=== PATIENT | male | born 1950 | race African-American/Black ===

== ENCOUNTER 2018-07-20 09:49 | Emergency (ER) | payer OTHER ==
[~2018-07-20] VITALS: Ht 175.3 cm; Wt 99.8 kg
[2018-07-20] MEDS ORDERED: IV NORMAL SALINE 1000ML BAG 1,000 ML IV SCH (10:18)
--- NOTE | 2018-07-20 10:36 | PHYS DOC ---
Adult General Chief Complaint Chief Complaint: BLOOD SUGAR PROBLEM HPI HPI Patient is a 67 year old male who presents with complaining of high blood sugar and urinary frequency. Patient states for the last 3 days he had urinary frequency without dysuria or abdominal pain and fever and chills and seen by his primary care physician today and had blood sugar of more than 400 and ketone in his urine and sent to ER for evaluation. Patient states recently he was changed to Januvia instead of glyburide. Patient primary care physician called ER and stated that patient is not compliant with diabetic diet. Patient denies fever and chills, chest pain, shortness of breath, focal neuro deficit. Review of Systems Review of Systems Constitutional: Denies fever or chills [] Eyes: Denies change in visual acuity, redness, or eye pain [] HENT: Denies nasal congestion or sore throat [] Respiratory: Denies cough or shortness of breath [] Cardiovascular: No additional information not addressed in HPI [] GI: Denies abdominal pain, nausea, vomiting, bloody stools or diarrhea [] : Denies dysuria or hematuria [] Musculoskeletal: Denies back pain or joint pain [] Integument: Denies rash or skin lesions [] Neurologic: Denies headache, focal weakness or sensory changes [] Endocrine: Denies polyuria or polydipsia [] All other systems were reviewed and found to be within normal limits, except as documented in this note. Current Medications Current Medications Current Medications Medications (Trade) Dose Ordered Sig/Gabriel Start Time Stop Time Status Last Admin Dose Admin Insulin Human Regular (HumuLIN R VIAL) 10 unit 1X ONCE 07/20/18 13:00 07/20/18 13:01 DC 07/20/18 13:03 10 UNIT Sodium Chloride 1,000 ml @ 100 mls/hr Q10H 07/20/18 10:18 07/20/18 20:17 07/20/18 10:36 100 MLS/HR Allergies Allergies Allergies Coded Allergies Type Severity Reaction Last Updated Verified aspirin Adverse Reaction Mild 07/20/18 Yes lisinopril Adverse Reaction Mild 07/20/18 Yes Physical Exam Physical Exam Constitutional: Well developed, well nourished, no acute distress, non-toxic appearance. [] HENT: Normocephalic, atraumatic, oropharynx moist, no oral exudates, nose normal. [] Eyes: PERRLA, EOMI, conjunctiva normal, no discharge. [] Neck: Normal range of motion, no tenderness, supple, no stridor. [] Cardiovascular:Heart rate regular rhythm, no murmur [] Lungs & Thorax: Bilateral breath sounds clear to auscultation [] Abdomen: Bowel sounds normal, soft, no tenderness, no masses, no pulsatile masses. [] Skin: Warm, dry, no erythema, no rash. [] Back: No tenderness, no CVA tenderness. [] Extremities: No tenderness, no cyanosis, no clubbing, ROM intact, no edema. [] Neurologic: Alert and oriented X 3, normal motor function, normal sensory function, no focal deficits noted. [] Psychologic: Affect normal, judgement normal, mood normal. [] Current Patient Data Vital Signs Vital Signs Date Time Temp Pulse Resp B/P (MAP) Pulse Ox O2 Delivery O2 Flow Rate FiO2 07/20/18 12:15 60 20 92/59 (70) 96 Room Air 07/20/18 10:14 99.2 99.2 Lab Values Laboratory Tests Test 07/20/18 10:13 07/20/18 10:31 07/20/18 11:31 07/20/18 12:50 Glucose (Fingerstick) 373 mg/dL (70-99) H 409 mg/dL (70-99) H White Blood Count 5.1 x10^3/uL (4.0-11.0) Red Blood Count 4.63 x10^6/uL (4.30-5.70) Hemoglobin 13.4 g/dL (13.0-17.5) Hematocrit 40.1 % (39.0-53.0) Mean Corpuscular Volume 87 fL (79-100) Mean Corpuscular Hemoglobin 29 pg (25-35) Mean Corpuscular Hemoglobin Concent 33 g/dL (31-37) Red Cell Distribution Width 14.0 % (11.5-14.5) Platelet Count 216 x10^3/uL (140-400) Neutrophils (%) (Auto) 51 % (31-73) Lymphocytes (%) (Auto) 40 % (24-48) Monocytes (%) (Auto) 6 % (0-9) Eosinophils (%) (Auto) 3 % (0-3) Basophils (%) (Auto) 1 % (0-3) Neutrophils # (Auto) 2.6 x10^3uL (1.8-7.7) Lymphocytes # (Auto) 2.0 x10^3/uL (1.0-4.8) Monocytes # (Auto) 0.3 x10^3/uL (0.0-1.1) Eosinophils # (Auto) 0.2 x10^3/uL (0.0-0.7) Basophils # (Auto) 0.0 x10^3/uL (0.0-0.2) Sodium Level 130 mmol/L (136-145) L Potassium Level 4.3 mmol/L (3.5-5.1) Chloride Level 94 mmol/L (98-107) L Carbon Dioxide Level 25 mmol/L (21-32) Anion Gap 11 (6-14) Blood Urea Nitrogen 21 mg/dL (8-26) Creatinine 1.9 mg/dL (0.7-1.3) H Estimated GFR (Cockcroft-Gault) 43.3 BUN/Creatinine Ratio 11 (6-20) Glucose Level 457 mg/dL (70-99) H Calcium Level 8.3 mg/dL (8.5-10.1) L Magnesium Level 1.7 mg/dL (1.8-2.4) L Total Bilirubin 1.6 mg/dL (0.2-1.0) H Aspartate Amino Transferase (AST) 18 U/L (15-37) Alanine Aminotransferase (ALT) 30 U/L (16-63) Alkaline Phosphatase 124 U/L (46-116) H Total Protein 8.0 g/dL (6.4-8.2) Albumin 3.8 g/dL (3.4-5.0) Albumin/Globulin Ratio 0.9 (1.0-1.7) L Lipase 114 U/L (73-393) Acetone Level Sm pos (NEG) Urine Collection Type Unknown Urine Color Yellow Urine Clarity Clear Urine pH 5.0 Urine Specific [place] 1.015 Urine Protein Negative mg/dL (NEG-TRACE) Urine Glucose (UA) >=1000 mg/dL (NEG) Urine Ketones (Stick) Trace mg/dL (NEG) Urine Blood Negative (NEG) Urine Nitrite Negative (NEG) Urine Bilirubin Negative (NEG) Urine Urobilinogen Dipstick 0.2 mg/dL (0.2 mg/dL) Urine Leukocyte Esterase Negative (NEG) Urine RBC 0 /HPF (0-2) Urine WBC 0 /HPF (0-4) Urine Squamous Epithelial Cells Few /LPF Urine Bacteria 0 /HPF (0-FEW) Laboratory Tests 07/20/18 10:31 Laboratory Tests 07/20/18 10:31 EKG EKG [] Radiology/Procedures Radiology/Procedures [] Course & Med Decision Making Course & Med Decision Making Pertinent Labs reviewed. (See chart for details) Evaluation of patient in ER showed 67-year-old male patient noncompliance with diabetic diet sent from primary care physician office because of high blood sugar like 20 urine. Patient had unremarkable vital signs and physical exam blood sugar was 475 that improved with IV fluid and insulin to 339. Patient did not have sign of DKA. He was advised to follow with diabetic diet and follow up with his primary care physician regarding diabetes management. Dragon Disclaimer Dragon Disclaimer This electronic medical record was generated, in whole or in part, using a voice recognition dictation system. Departure Departure Impression: Primary Impression: Hyperglycemia Additional Impressions: Uncontrolled diabetes mellitus Hypomagnesemia Hyperbilirubinemia Disposition: HOME, SELF-CARE (@2875) Condition: IMPROVED Patient Instructions: 1800 Calorie Diet for Diabetes Meal Planning, Diabetes Meal Planning Guide, Diabetes and Exercise-SportsMed, Hyperglycemia Additional Instructions: Drink plenty of liquids Follow-up with your primary care physician in 3-5 days Return to ER if not getting better Problem Qualifiers AMINATA ABBASI MD Jul 20, 2018 10:36
[2018-07-20 10:49] LABS: BASO % 1 % (0-3); EOS # 0.2 x10^3/uL (0.0-0.7); EOS % 3 % (0-3); HEMATOCRIT 40.1 % (39.0-53.0); HEMOGLOBIN 13.4 g/dL (13.0-17.5); LYMPH % 40 % (24-48); MEAN CORPUSCULAR HEMOGLOBIN 29 pg (25-35); MEAN CORPUSCULAR HGB CONC 33 g/dL (31-37); MEAN CORPUSCULAR VOLUME 87 fL (79-100); MONO # 0.3 x10^3/uL (0.0-1.1); MONO % 6 % (0-9); NEUT # 2.6 x10^3uL (1.8-7.7); NEUT % 51 % (31-73); PLATELET COUNT 216 x10^3/uL (140-400); RED BLOOD COUNT 4.63 x10^6/uL (4.30-5.70); WHITE BLOOD COUNT 5.1 x10^3/uL (4.0-11.0)
[2018-07-20 11:05] LABS: CALCIUM 8.3 mg/dL (8.5-10.1); CREATININE 1.9 mg/dL (0.7-1.3); GFR 43.3; POTASSIUM 4.3 mmol/L (3.5-5.1)
[2018-07-20 11:11] LABS: ALBUMIN 3.8 g/dL (3.4-5.0); ALBUMIN/GLOBULIN RATIO 0.9 (1.0-1.7); MAGNESIUM 1.7 mg/dL (1.8-2.4); TOTAL BILIRUBIN 1.6 mg/dL (0.2-1.0)
[2018-07-20 11:38] LABS: BILIRUBIN,URINE NEGATIVE (NEG); CLARITY,URINE CLEAR; COLOR,URINE YELLOW; NITRITE,URINE NEGATIVE (NEG); PROTEIN,URINE NEGATIVE (NEG-TRACE); UROBILINOGEN,URINE 0.2 mg/dL (0.2 mg/dL)
[2018-07-20 11:55] LABS: BACTERIA,URINE 0 /HPF (0-FEW); RBC,URINE 0 /HPF (0-2); SQUAMOUS EPITHELIAL CELL,UR FEW /LPF; WBC,URINE 0 /HPF (0-4)
[2018-07-20] MEDS ORDERED: INSULIN REGULAR 100 UNIT/ML 3ML VIAL. IV ONE (13:00)
[2018-07-20 13:15] VITALS: BP 102/57
== END 2018-07-20 14:14 | disposition home or self-care (01) ==
LOC: ER 09:49
DX: E11.65 Type 2 diabetes mellitus with hyperglycemia (principal); E83.42 Hypomagnesemia; E80.6 Other disorders of bilirubin metabolism; Z88.6 Allergy status to analgesic agent; Z88.8 Allergy status to other drugs, medicaments and biological substances; Z79.4 Long term (current) use of insulin
CPT/HCPCS: 36415; 80053; 81001; 82010; 82962; 83690; 83735; 85025; 96361; 96374; 99283; J1815; J7030

== ENCOUNTER 2018-07-24 14:28 | Emergency (ER) | payer OTHER ==
[~2018-07-24] VITALS: Ht 175.3 cm; Wt 99.8 kg
[2018-07-24] MEDS ORDERED: ONDANSETRON PF 4 MG/2 ML VIAL. IV ONE (15:15)
[2018-07-24] MEDS ORDERED: IV NORMAL SALINE 1000ML BAG 1,000 ML IV ONE ×2 (15:15→16:00)
--- NOTE | 2018-07-24 15:21 | PHYS DOC ---
Past Medical History Past Medical History: Arthritis, Diabetes-Type II, Glaucoma, High Cholesterol, Hypertension Past Surgical History: No Surgical History Additional Past Surgical Histo: GLAUCOMA SX Alcohol Use: Rarely Drug Use: None Adult General Chief Complaint Chief Complaint: HYPERGLYCEMIA HPI HPI Patient is a 67 year old male with a history of diabetes presents to the ED complaining of high blood sugar times one day ago. Patient states that his blood sugar has been around the mid 200s. Patient was seen on 07/20 for similar symptoms. Patient was recently a changed from glyburide to Januvia. Patient states he also takes metformin. States he has tried to watch his diet and monitor his sugars. Patient has been known to not be compliant with his diet. Denies fever, chills, chest pain, shortness of breath, neuro deficit, paresthesias, headache, altered mental status, dizziness or weakness. Review of Systems Review of Systems Constitutional: Denies fever or chills [] Eyes: Denies change in visual acuity, redness, or eye pain [] HENT: Denies nasal congestion or sore throat [] Respiratory: Denies cough or shortness of breath [] Cardiovascular: No additional information not addressed in HPI [] GI: Denies abdominal pain, nausea, vomiting, bloody stools or diarrhea [] : Denies dysuria or hematuria [] Musculoskeletal: Denies back pain or joint pain [] Integument: Denies rash or skin lesions [] Neurologic: Denies headache, focal weakness or sensory changes [] All other systems were reviewed and found to be within normal limits, except as documented in this note. Current Medications Current Medications Current Medications Medications (Trade) Dose Ordered Sig/Gabriel Start Time Stop Time Status Last Admin Dose Admin Magnesium Sulfate/ Dextrose 100 ml @ 100 mls/hr 1X ONCE 07/24/18 17:00 07/24/18 17:59 DC 07/24/18 17:29 100 MLS/HR Ondansetron HCl (Zofran) 4 mg 1X ONCE 07/24/18 15:15 07/24/18 15:16 DC 07/24/18 15:28 4 MG Sodium Chloride 1,000 ml @ 1,000 mls/hr 1X ONCE 07/24/18 16:00 07/24/18 16:59 DC 07/24/18 16:09 1,000 MLS/HR Allergies Allergies Allergies Coded Allergies Type Severity Reaction Last Updated Verified aspirin Adverse Reaction Mild 07/20/18 Yes lisinopril Adverse Reaction Mild 07/20/18 Yes Physical Exam Physical Exam Constitutional: Well developed, well nourished, no acute distress, non-toxic appearance. [] HENT: Normocephalic, atraumatic Eyes: PERRLA, EOMI, conjunctiva normal, no discharge. [] Neck: Normal range of motion, no tenderness, supple, no stridor. [] Cardiovascular:Heart rate regular rhythm, no murmur [] Lungs & Thorax: Bilateral breath sounds clear to auscultation [] Abdomen: Bowel sounds normal, soft, no tenderness, no masses, no pulsatile masses. [] Skin: Warm, dry, no erythema, no rash. [] Back: No tenderness, no CVA tenderness. [] Extremities: No tenderness, no cyanosis, no clubbing, ROM intact, no edema. [] Neurologic: Alert and oriented X 3, normal motor function, normal sensory function, no focal deficits noted. [] Psychologic: Affect normal, judgement normal, mood normal. [] Current Patient Data Vital Signs Vital Signs Date Time Temp Pulse Resp B/P (MAP) Pulse Ox O2 Delivery O2 Flow Rate FiO2 07/24/18 18:00 64 17 98/60 (73) 98 Room Air 07/24/18 15:01 97.7 97.7 Lab Values Laboratory Tests Test 07/24/18 15:10 07/24/18 15:23 07/24/18 15:58 07/24/18 16:50 Glucose (Fingerstick) 267 mg/dL (70-99) H 240 mg/dL (70-99) H White Blood Count 5.6 x10^3/uL (4.0-11.0) Red Blood Count 4.75 x10^6/uL (4.30-5.70) Hemoglobin 13.5 g/dL (13.0-17.5) Hematocrit 41.0 % (39.0-53.0) Mean Corpuscular Volume 86 fL (79-100) Mean Corpuscular Hemoglobin 29 pg (25-35) Mean Corpuscular Hemoglobin Concent 33 g/dL (31-37) Red Cell Distribution Width 14.4 % (11.5-14.5) Platelet Count 246 x10^3/uL (140-400) Neutrophils (%) (Auto) 54 % (31-73) Lymphocytes (%) (Auto) 35 % (24-48) Monocytes (%) (Auto) 8 % (0-9) Eosinophils (%) (Auto) 2 % (0-3) Basophils (%) (Auto) 1 % (0-3) Neutrophils # (Auto) 3.0 x10^3uL (1.8-7.7) Lymphocytes # (Auto) 1.9 x10^3/uL (1.0-4.8) Monocytes # (Auto) 0.4 x10^3/uL (0.0-1.1) Eosinophils # (Auto) 0.1 x10^3/uL (0.0-0.7) Basophils # (Auto) 0.1 x10^3/uL (0.0-0.2) Sodium Level 132 mmol/L (136-145) L Potassium Level 4.3 mmol/L (3.5-5.1) Chloride Level 96 mmol/L (98-107) L Carbon Dioxide Level 24 mmol/L (21-32) Anion Gap 12 (6-14) Blood Urea Nitrogen 22 mg/dL (8-26) Creatinine 1.9 mg/dL (0.7-1.3) H Estimated GFR (Cockcroft-Gault) 43.3 BUN/Creatinine Ratio 12 (6-20) Glucose Level 281 mg/dL (70-99) H Calcium Level 8.8 mg/dL (8.5-10.1) Magnesium Level 1.7 mg/dL (1.8-2.4) L Total Bilirubin 1.2 mg/dL (0.2-1.0) H Aspartate Amino Transferase (AST) 58 U/L (15-37) H Alanine Aminotransferase (ALT) 66 U/L (16-63) H Alkaline Phosphatase 105 U/L (46-116) Total Protein 8.6 g/dL (6.4-8.2) H Albumin 4.1 g/dL (3.4-5.0) Albumin/Globulin Ratio 0.9 (1.0-1.7) L Urine Collection Type Unknown Urine Color Yellow Urine Clarity Clear Urine pH 5.0 Urine Specific [place] 1.015 Urine Protein Negative mg/dL (NEG-TRACE) Urine Glucose (UA) 250 mg/dL (NEG) Urine Ketones (Stick) Trace mg/dL (NEG) Urine Blood Negative (NEG) Urine Nitrite Negative (NEG) Urine Bilirubin Small (NEG) Urine Urobilinogen Dipstick 0.2 mg/dL (0.2 mg/dL) Urine Leukocyte Esterase Small (NEG) Urine RBC Occ /HPF (0-2) Urine WBC 1-4 /HPF (0-4) Urine Squamous Epithelial Cells Few /LPF Urine Bacteria 0 /HPF (0-FEW) Urine Hyaline Casts Moderate /HPF Urine Mucus Mod /LPF Test 07/24/18 18:22 Glucose (Fingerstick) 285 mg/dL (70-99) H Laboratory Tests 07/24/18 15:23 Laboratory Tests 07/24/18 15:23 EKG EKG [] Radiology/Procedures Radiology/Procedures []PROCEDURE: ABDOMEN LTD ABDOMEN LTD History: HYPERGLYCEMIA Comparison: None. Findings: Multiple sonographic images of the abdomen are submitted. Pancreas is not well-visualized due to bowel gas. Inferior vena cava is also suboptimally seen due to bowel gas. There is coarsening of the hepatic echotexture. Right lobe of liver measured about 18.3 cm longitudinal. Gallbladder is present without intraluminal abnormality, wall thickening, pericholecystic fluid. Common bile duct measures 0.4 cm. Right kidney measured 11.3 x 4.8 x 5.4 cm, no hydronephrosis. Impression: 1. There is hepatic steatosis. Pancreas is not well-visualized due to bowel gas. Course & Med Decision Making Course & Med Decision Making Pertinent Labs and Imaging studies reviewed. (See chart for details) Patient's blood sugar improved with fluids given in the ED. Patient's low magnesium replaced. States he is feeling much better. Patient counseled on dietary changes as he has a history of non-complicance. Normal vital signs and physical exam. No signs of DKA. []Discussed lab and imaging findings with patients PCP, Dr. Johnny Farias. States he can see patient tomorrow in the office at 3:15pm. States he will review his medications at that time and requests no changes to his current medications. Discussed the importance of follow-up and reasons to return to the ED. Patient understands and agrees with plan. Dragon Disclaimer Dragon Disclaimer This electronic medical record was generated, in whole or in part, using a voice recognition dictation system. Departure Departure Impression: Primary Impression: Hypomagnesemia Additional Impressions: Elevated liver enzymes Hyperglycemia Elevated serum creatinine Disposition: HOME, SELF-CARE Condition: IMPROVED Referrals: UNKNOWN PCP NAME (PCP) Patient Instructions: Hyperglycemia, Hypomagnesemia Additional Instructions: See Dr. Pro tomorrow at 3:15 pm. Problem Qualifiers VENTURA ORTIZ Jul 24, 2018 15:21
[2018-07-24 15:30] LABS: BASO # 0.1 x10^3/uL (0.0-0.2); BASO % 1 % (0-3); EOS # 0.1 x10^3/uL (0.0-0.7); EOS % 2 % (0-3); HEMOGLOBIN 13.5 g/dL (13.0-17.5); LYMPH # 1.9 x10^3/uL (1.0-4.8); LYMPH % 35 % (24-48); MEAN CORPUSCULAR HEMOGLOBIN 29 pg (25-35); MEAN CORPUSCULAR HGB CONC 33 g/dL (31-37); MEAN CORPUSCULAR VOLUME 86 fL (79-100); MONO # 0.4 x10^3/uL (0.0-1.1); MONO % 8 % (0-9); NEUT % 54 % (31-73); PLATELET COUNT 246 x10^3/uL (140-400); RED BLOOD COUNT 4.75 x10^6/uL (4.30-5.70); RED CELL DISTRIBUTION WIDTH 14.4 % (11.5-14.5); WHITE BLOOD COUNT 5.6 x10^3/uL (4.0-11.0)
[2018-07-24 15:43] LABS: CALCIUM 8.8 mg/dL (8.5-10.1); CREATININE 1.9 mg/dL (0.7-1.3); GFR 43.3; POTASSIUM 4.3 mmol/L (3.5-5.1)
[2018-07-24 15:49] LABS: ALBUMIN 4.1 g/dL (3.4-5.0); ALBUMIN/GLOBULIN RATIO 0.9 (1.0-1.7); TOTAL BILIRUBIN 1.2 mg/dL (0.2-1.0); TOTAL PROTEIN 8.6 g/dL (6.4-8.2)
[2018-07-24 16:05] LABS: BILIRUBIN,URINE SMALL (NEG); COLOR,URINE YELLOW; NITRITE,URINE NEGATIVE (NEG); PROTEIN,URINE NEGATIVE (NEG-TRACE); UROBILINOGEN,URINE 0.2 mg/dL (0.2 mg/dL)
[2018-07-24 16:12] LABS: CLARITY,URINE CLEAR; SQUAMOUS EPITHELIAL CELL,UR FEW /LPF
[2018-07-24 16:13] LABS: BACTERIA,URINE 0 /HPF (0-FEW); HYALINE CASTS, URINE MODERATE /HPF; RBC,URINE OCC /HPF (0-2)
[2018-07-24] MEDS ORDERED: MAGNESIUM SULFATE 1GM 100 ML IV ONE (17:00)
--- NOTE | 2018-07-24 17:08 | RAD ---
ABDOMEN LTD History: HYPERGLYCEMIA Comparison: None. Findings: Multiple sonographic images of the abdomen are submitted. Pancreas is not well-visualized due to bowel gas. Inferior vena cava is also suboptimally seen due to bowel gas. There is coarsening of the hepatic echotexture. Right lobe of liver measured about 18.3 cm longitudinal. Gallbladder is present without intraluminal abnormality, wall thickening, pericholecystic fluid. Common bile duct measures 0.4 cm. Right kidney measured 11.3 x 4.8 x 5.4 cm, no hydronephrosis. Impression: 1. There is hepatic steatosis. Pancreas is not well-visualized due to bowel gas. Electronically signed by: Stevie Grier MD (07/24/2018 5:05 PM) [email or web address]
[2018-07-24 18:00] VITALS: BP 98/60
== END 2018-07-24 18:36 | disposition home or self-care (01) ==
LOC: ER 14:28
DX: E11.65 Type 2 diabetes mellitus with hyperglycemia (principal); E83.42 Hypomagnesemia; R74.8 Abnormal levels of other serum enzymes; R79.89 Other specified abnormal findings of blood chemistry; M19.90 Unspecified osteoarthritis, unspecified site; E11.39 Type 2 diabetes mellitus with other diabetic ophthalmic complication; H42 Glaucoma in diseases classified elsewhere; I10 Essential (primary) hypertension; Z88.8 Allergy status to other drugs, medicaments and biological substances; Z88.6 Allergy status to analgesic agent
CPT/HCPCS: 36415; 76705; 80053; 81001; 82962; 83735; 85025; 96361; 96365; 96375; 99285; J2405; J3475; J7030

== ENCOUNTER → 2018-10-16 | Outpatient (CLI) | payer OTHER ==
--- NOTE | 2018-10-18 08:57 | SLEEP ---
DATE OF STUDY: 10/17/2018 OBJECTIVE: The patient is a 67-year-old male with previous sleep study showing sleep apnea and continues to have excessive somnolence, observed snoring. Dandridge sleep score 4. Height of 69 inches, weight 235 pounds, body mass index 34.7. The apnea-hypopnea index is 26.3 events per hour of sleep, 6.5 events per hour of obstructive apneas, 2.4 events per hour central apneas, with a minimum oxygen saturation of 76%. Mean heart rate is 78.8 beats per minute, with a maximum heart rate of 95. IMPRESSION: Abnormal home polysomnogram showing apnea-hypopnea with an index of 26.3 events per hour of sleep. RECOMMENDATIONS: I will discuss with the patient options including a repeat study for CPAP titration versus empirically starting him on variable CPAP at home. Thank you for letting us help with the patient's care. CHIKI SLATER MD DR: SANJAY/bam JOB#: [id number] / [id number] JAYY Henderson MD
== END | disposition home or self-care (01) ==
LOC: RT 10:09
PROVIDERS: ATTEND Psychiatry & Neurology Neurology with Special Qualifications in Child Neurology
DX: G47.33 Obstructive sleep apnea (adult) (pediatric) (principal); E11.9 Type 2 diabetes mellitus without complications; I10 Essential (primary) hypertension
CPT/HCPCS: G0399

== ENCOUNTER → 2018-12-05 | Outpatient (CLI) | payer OTHER ==
[~2018-12-05] MED LIST: ZOLPIDEM 5 MG TABLET. PO ONE
--- NOTE | 2018-12-06 15:29 | SLEEP ---
DATE OF STUDY: 12/05/2018 STUDY PERFORMED: Polysomnogram. OBJECTIVE: The patient is a 67-year-old male with previous sleep apnea, who underwent an updated home study on 10/18/2018 showing apnea-hypopnea index of 26.3 events per hour of sleep. This current study is for the purposes of CPAP titration. Height 5 feet 10 inches, weight 230 pounds, body mass index 33. Dowell sleep score of 4. INTERPRETATION: Sleep architecture is characterized by sleep efficiency of 57% across the 6.7 hours of recording time. Sleep onset latency is 37 minutes. Stage volumes are appropriate for age. The patient did require a zolpidem tablet in the middle of study to complete the titration. Respiratory monitoring shows a total of 33 events for an apnea-hypopnea index of 8.6 events per hour of sleep with a minimum oxygen saturation of 86%. The patient is started on treatment and on 9 cm, apnea-hypopnea index is 1 event per hour of sleep. Periodic limb movements of sleep occur at the rate of 15 per hour, only 1 per hour associated with arousal. No cardiac arrhythmias observed. IMPRESSION: Abnormal polysomnogram with successful CPAP titration using a Resp[employer]ics Dreamweaver full face mask, large size, at 9 cm. RECOMMENDATIONS: 1. My office will attempt to arrange this setting for the patient. 2. The patient will avoid sedatives and alcohol and pursue weight loss. Thank you for letting us help with the patient's care. CHIKI SLATER MD DR: SANJAY/bam JOB#: [id number] / [id number] JAYY Henderson MD
== END | disposition home or self-care (01) ==
LOC: RT 19:05
PROVIDERS: ATTEND Psychiatry & Neurology Neurology with Special Qualifications in Child Neurology
DX: G47.33 Obstructive sleep apnea (adult) (pediatric) (principal); I10 Essential (primary) hypertension; E11.9 Type 2 diabetes mellitus without complications; M17.0 Bilateral primary osteoarthritis of knee
CPT/HCPCS: 95811